=== PATIENT | female | born 1955 | race Caucasian/White ===

== ENCOUNTER 2017-08-12 18:54 | Emergency (ER) | payer OTHER ==
[~2017-08-12] VITALS: Ht 160 cm; Wt 57.0 kg
[2017-08-12 18:58] VITALS: Ht 160 cm; Wt 57.0 kg
[2017-08-12] MEDS ORDERED: POLY10DR19 RIGHT EYE (20:22)
[2017-08-12] MEDS ORDERED: CEPH-443 PO (20:28)
[2017-08-12] MEDS ORDERED: SULF1TAB31 PO (20:28)
--- NOTE | 2017-08-12 21:49 | ERD ---
ER Documentation Chief Complaint Date/Time DATE: 08/12/17 TIME: 21:46 Chief Complaint swelling right upper eyelid HPI Patient is a 62-year-old female who presents to the ED with right eyelid swelling and itchiness. She states that it was mild but has gotten worse in the last 3 days. She denies fever or chills. She denies blurry vision or pain in her eyes. She denies other rashes. Patient has received a shingles vaccine. Denies fever or chills. Denies chest pain or cough or shortness of breath. She used an ointment that she had at home which helped minimally with her symptoms. No other complaints. ROS All systems reviewed and are negative except as per history of present illness. Medications Home Meds Active Scripts Cephalexin* (Keflex*) 500 Mg Capsule, 500 MG PO BID for 7 Days, CAP Prov:GLEN QUIJANO PA-C 08/12/17 Sulfamethoxazole/Trimethoprim* (Bactrim Ds* Tablet) 1 Each Tablet, 1 TAB PO BID , #7 TAB Prov:GLEN QUIJANO PA-C 08/12/17 Polymyxin B Sulfate-TMP* (Polymyxin B-TMP Eye Drops*) 10 Ml Drops, 1 DROP RIGHT EYE QID for 7 Days, EA Prov:GLEN QUIJANO PA-C 08/12/17 Allergies Allergies: Coded Allergies: No Known Allergy (Unverified , 08/12/17) PMhx/Soc History of Surgery: Yes (etopic pregx 2, cholecystectomy, breast augmentation) Anesthesia Reaction: No Hx Neurological Disorder: No Hx Respiratory Disorders: No Hx Cardiac Disorders: Yes (HTN) Hx Psychiatric Problems: No Hx Miscellaneous Medical Probl: No Hx Alcohol Use: No Hx Substance Use: No Hx Tobacco Use: No Smoking Status: Never smoker FmHx Family History: No coronary disease, No diabetes, No other Physical Exam Vitals Vital Signs Date Time Temp Pulse Resp B/P Pulse Ox O2 Delivery O2 Flow Rate FiO2 08/12/17 18:58 98.3 72 20 170/85 100 Physical Exam GENERAL: Well-developed, well-nourished female. Appears in no acute distress. HEAD: Normocephalic, atraumatic. EYES: Pupils are equally reactive bilaterally. EOMs grossly intact. No conjunctival erythema. right upper eyelid swollen and red. no proptosis. no pain with EOM. ENT: Moist mucous membranes. No uvula deviation. No kissing tonsils. No exudates. NECK: Supple. No lymphadenopathy or thyromegaly. No meningismus. negative kernig. negative brudinski. LUNG: Clear to auscultation bilaterally. No rhonchi, wheezing, rales or coarse breath sounds. HEART: Regular rate and rhythm. No murmurs, rubs or gallops. BACK: No midline tenderness. Extremities: Equal pulses bilaterally. No peripheral clubbing, cyanosis or edema. No unilateral leg swelling. NEUROLOGIC: Alert and oriented. Moving all four extremities. 5/5 strength in all extremities. Normal speech. Steady gait. SKIN: Normal color. Warm and dry. No rashes or lesions. Capillary refill < 2 seconds Procedures/MDM ER COURSE: I kept the patient and/or family informed of laboratory and diagnostic imaging results throughout the emergency room course. MEDICAL DECISION MAKING: This is a 62-year-old female who presents with right eyelid swelling. Vital signs were reviewed. Patient is afebrile. Patient is not hypoxic. Patient has what is likely preseptal cellulitis. I have low suspicion for orbital cellulitis. Patient does not have proptosis, does not have pain with EOMs and does not have blurry vision. Patient does not have pain. No CT scan was done in the ED. Advised patient to follow-up with ophthalmology on Monday. Low suspicion for acute angle closure glaucoma, retinal detachment, arterial occlusion, hemorrhage, fracture, foreign body, ruptured globe, orbital cellulitis. Visual acuity exam was within normal limits. DISCHARGE: At this time, patient is stable for discharge and outpatient management with no new complaints during the ER course. Patient was sent home with Bactrim, Keflex and Polytrim drops. Patient will be discharged home with instructions to recheck for new or worsening symptoms such as fever, nausea, weakness, LOC and to follow up with primary care in the next 1-2 days. Patient was advised to return to the ER for any new or worsening symptoms. Plan was discussed and patient and/or family understands and agrees. Home instructions were given. Departure Diagnosis: Primary Impression: Periorbital cellulitis of right eye Condition: Stable Patient Instructions: Adrianna-Orbital Cellulitis Referrals: [facility] Hours: Mon - Fri 9:00 AM - 5:00 PM Additional Instructions: Call your primary care doctor TOMORROW for an appointment during the next 1-2 days.See the doctor sooner or return here if your condition worsens before your appointment time. GLEN QUIJANO PA-C Aug 12, 2017 21:49
== END 2017-08-12 20:50 | disposition home or self-care (01) ==
LOC: FTE 18:54
DX: H05.011 Cellulitis of right orbit (principal); I10 Essential (primary) hypertension
CPT/HCPCS: 99284

== ENCOUNTER 2018-07-06 22:01 | Emergency (ER) | END 2018-07-06 23:56 | disposition home or self-care (01) ==